=== PATIENT | male | born 1970 | race Caucasian/White ===

== ENCOUNTER 2020-08-25 10:10 | Emergency (ER) | payer BC ==
[2020-08-25] MEDS ORDERED: Bacitracin/Neomycin/Polymyxin B Oint 0.9 GM U/D Packet TOP ONE (10:16)
--- NOTE | 2020-08-25 10:16 | EDM.PDOC ---
ED HPI GENERAL MEDICAL PROBLEM - General Chief Complaint: General Stated Complaint: puncture wound Time Seen by Provider: 08/25/20 10:10 Source of Information: Reports: Patient, Old Records ([facility] chart/EMR) History Limitations: Reports: No Limitations - History of Present Illness INITIAL COMMENTS - FREE TEXT/NARRATIVE: The patient was brought to the emergency room via private automobile by his employee for evaluation of multiple puncture wounds on his right arm from catching it between 2 strands of clean shaquille wires while he was trying to put up a fence at about 9:35 AM this morning. No treatment or medications prior to arrival. He does not know his previous tetanus status. The patient is right- handed. No history of fall, injury, neurological deficits, etc. with stable chronic paresthesias from his chronic neck pain. The patient denies any chest pain/pressure, heart flutter, dizziness, orthostasis, orthopnea, diaphoresis, recent decreased exercise tolerance, or any other anginal-type symptoms. No recent history of abdominal pain, heartburn, nausea, diarrhea, melena, gross hematochezia, or any food intolerance, including fatty foods, etc.. The patient also denies any recent fever, cough, wheezing, dyspnea, etc... He complains of 34/10 throbbing pain at side of the above injury. Onset: Today, Sudden Onset Date: 08/25/20 Onset Time: 09:35 Duration: Constant Location: Denies: Head, Face, Neck, Chest, Abdomen Quality: Reports: Throbbing Severity: Mild Improves with: Reports: None Worsens with: Reports: None Context: Reports: Trauma (As above). Denies: Sick Contact Associated Symptoms: Denies: Confusion, Chest Pain, Cough, Diaphoresis, Fever/Chills, Headaches, Loss of Appetite, Malaise, Nausea/Vomiting, Shortness of Breath, Syncope, Weakness Treatments SUPERVISOR LITHARGE: Reports: Other (see below) (None) Right Wrist Pain Score (Numeric/FACES): 3 - Related Data Allergies Allergy/AdvReac Type Severity Reaction Status Date / Time No Known Allergies Allergy Verified 08/25/20 10:14 Home Meds: Home Meds . [No Known Home Meds] 08/25/20 [History] Past Medical History HEENT History: Reports: Other (See Below) Other HEENT History: Recurrent tonsillitis. Cardiovascular History: Reports: High Cholesterol, Hypertension, Other (See Below) Other Cardiovascular History: No current medical therapy for his borderline hypertension or hyperlipidemia. Musculoskeletal History: Reports: Arthritis, Back Pain, Chronic, Fracture, Neck Pain, Chronic, Osteoarthritis, Other (See Below) Other Musculoskeletal History: Left ankle fracture in 2013 with surgery as below. Endocrine/Metabolic History: Reports: Obesity/BMI 30+ - Past Surgical History HEENT Surgical History: Reports: Tonsillectomy, Other (See Below). Denies: Adenoidectomy Other HEENT Surgeries/Procedures: Tonsillectomy on 08/11/2004. Musculoskeletal Surgical History: Reports: ORIF, Other (See Below) Other Musculoskeletal Surgeries/Procedures:: Left ankle ORIF secondary to fracture in 2013. Social & Family History - Tobacco Use Tobacco Use Status *Q: Current Every Day Tobacco User Tobacco Use Within Last Twelve Months: Snuff/Dip Years of Tobacco use: 36 Packs/Tins Daily: 0.4 Packs/Tins Daily Comment: Patient started using chewing tobacco at age 13 with average use of 1/3 can/day. Used Tobacco, but Quit: No Smoking Cessation Information Provided To Patient: Yes Second Hand Smoke Exposure: No Second Hand Smoke Education Provided: No - Living Situation & Occupation Living situation: Reports: (1999. 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 ED EXAM, GENERAL - Physical Exam Exam: See Below Exam Limited By: No Limitations General Appearance: Alert, WD/WN, No Apparent Distress Head: Atraumatic, Normocephalic Neck: Normal Inspection, Supple, Non-Tender, Full Range of Motion. No: Lymphadenopathy (L), Lymphadenopathy (R), Thyromegaly Respiratory/Chest: No Respiratory Distress, Lungs Clear, Normal Breath Sounds, No Accessory Muscle Use, Chest Non-Tender. No: Pleural Rub, Retractions Cardiovascular: Normal Peripheral Pulses, Regular Rate, Rhythm, No Edema, No Gallop, No JVD, No Murmur, No Rub. No: Gallop/S3, Gallop/S4, Friction Rub Peripheral Pulses: 2+: Radial (L), Radial (R) GI/Abdominal: Normal Bowel Sounds, Soft, Non-Tender, No Organomegaly, No Distention, No Abnormal Bruit, No Mass, Pelvis Stable, Other (Obese). No: Guarding (Fall or other injury neck pain back pain and any fall or hit her head or neck pain nothing like that) (Male) Exam: Deferred Rectal (Males) Exam: Deferred. No: Rectal Fissure Back Exam: Normal Inspection, Full Range of Motion. No: CVA Tenderness (R), Muscle Spasm Extremities: Normal Range of Motion, No Pedal Edema, Normal Capillary Refill, Arm Pain (Mild tenderness with range of motion and by palpation over injury site. Moderate swelling over the distal right anterior tibial region consistent with probable subcutaneous hematoma with multiple small puncture wounds but no direct evidence of foreign body, fracture, dislocation, etc.). No: Increased Warmth, Redness Neurological: Alert, Oriented, CN II-XII Intact, Normal Cognition, Normal Gait, No Motor/Sensory Deficits Psychiatric: Normal Affect, Normal Mood Skin Exam: Wound/Incision (As above). No: Diaphoretic, Ecchymosis Lymphatic: No Adenopathy Course - Vital Signs Last Recorded V/S: Last Vital Signs Temp 36.6 C 08/25/20 10:14 Pulse 77 08/25/20 10:14 Resp 20 08/25/20 10:14 BP 141/95 H 08/25/20 10:30 Pulse Ox 98 08/25/20 10:14 Vital Signs - 24 hr 08/25/20 08/25/20 10:14 10:30 Temperature [ 36.6 C Temporal] Pulse, 77 Peripheral [ Pulse Oximetry] Respiratory 20 Rate Blood Pressure 143/101 H 141/95 H [Left Upper Arm ] O2 Sat by Pulse 98 Oximetry - Orders/Labs/Meds Orders: Active Orders 24 hr Category Date Time Status Vaccines to be Administered [RC] PER UNIT ROUTINE Care 08/25/20 10:22 Active Wrist Comp Min 3V Rt [CR] Stat Exams 08/25/20 10:17 Taken Durable Medical Equipment for Discharge [DME for Oth 08/25/20 10:48 Ordered Discharge] [COMM] Routine Obtain Past Medical Record [OM.PC] Routine Oth 08/25/20 10:16 Active Labs: None Meds: Medications Discontinued Medications Generic Name Dose Route Start Last Admin Trade Name Freq PRN Reason Stop Dose Admin Diphtheria/Tetanus/Acell Pertussis 0.5 ml 08/25/20 10:21 08/25/20 10:34 Diphtheria,Pertussis(Acell),Tetanus Vaccine 0.5 Ml Syringe IM 08/25/20 10:22 0.5 ml .ONCE ONE Administration Neomycin/Polymyxin/Bacitracin 1 each 08/25/20 10:16 08/25/20 10:35 Bacitracin/Neomycin/Polymyxin B Oint 0.9 Gm U/D Packet TOP 08/25/20 10:17 1 each ONETIME ONE Administration - Radiology Interpretation Free Text/Narrative:: X-rays of right wrist/distal forearm, 3 views, shows no evidence of fracture, dislocation, foreign body, etc. Mild osteoarthritic changes noted. Departure - Departure Time of Disposition: 10:50 Disposition: Home, Self-Care 01 Condition: Good Clinical Impression: Puncture wound, Tobacco abuse counseling Hypertension Qualifiers: Hypertension type: essential hypertension Qualified Code(s): I10 - Essential (primary) hypertension Hyperlipidemia Qualifiers: Hyperlipidemia type: unspecified Qualified Code(s): E78.5 - Hyperlipidemia, unspecified Osteoarthritis Qualifiers: Osteoarthritis location: multiple joints Osteoarthritis type: primary Qualified Code(s): M89.49 - Other hypertrophic osteoarthropathy, multiple sites Peripheral neuropathy Qualifiers: Peripheral neuropathy type: polyneuropathy, other Qualified Code(s): G62.89 - Other specified polyneuropathies - Discharge Information *PRESCRIPTION DRUG MONITORING PROGRAM REVIEWED*: Not Applicable *COPY OF PRESCRIPTION DRUG MONITORING REPORT IN PATIENT GUZMAN: Not Applicable Instructions: Health Risks of Smoking, Puncture Wound, [id number], Acute Compartment Syndrome, Smokeless Tobacco Information, Adult Referrals: Dayanna Zarco NP [Primary Care Provider] - Forms: ED Department Discharge Additional Instructions: 1. Follow up with your regular provider in 10-14 days as needed, if symptoms persist. Bring these discharge instructions with you to that visit. 2. Tylenol 650 mg by mouth every 4 hours and/or OTC ibuprofen 2-3 tabs by mouth every 6 hours with food as directed./needed. You may stagger these medications for 48-72 hours only, which essentially means that you are receiving a pain medication about every 2 hours. 3. Antibacterial soap wash/soak with subsequent antibacterial dressing such as Neosporin, etc. as directed 2 times per day until the wound or laceration site completely heals. Keep the area clean and dry with activity restrictions as discussed. Never use hydrogen peroxide for wound care. 4. Arm elevation and ice packs as discussed with continued use of Alfred wrap until swelling resolves 5. Stop all tobacco use MICHELLE as directed/per provided information and consider contacting Quit LIne, etc.. 6. Continue to observe your blood pressures closely through your regular provider 7. Continue weight loss in moderation with continued close observation of your cholesterol status by your regular provider 8. Immediately after this visit verify that your cellular telephone's voicemail has been activated and is empty. Also verify that your home telephone's answering machine is operating properly and has space to receive messages. Note that it is sometimes necessary for us to be able to contact you at a later date to discuss your medical care. 9. Please remember that we are ALWAYS here for you and want to answer any questions you may have. Feel free to call the hospital any time and we call you back MICHELLE. Sepsis Event Note (ED) - Focused Exam Vital Signs: Vital Signs Temp Pulse Resp BP Pulse Ox 08/25/20 10:30 141/95 H 08/25/20 10:14 36.6 C 77 20 143/101 H 98 - Problem List & Annotations (1) Puncture wound SNOMED Code(s): 222493523 Code(s): T14.8XXA - OTHER INJURY OF UNSPECIFIED BODY REGION, INITIAL ENCOUNTER Status: Acute Priority: High Current Visit: Yes Onset Date: 08/25/20 Annotation/Comment:: No recent TDAP per review of NDHIM by the emergency room nurse. TDAP given. Wound care, activity restrictions, etc. were extensively discussed. Patient was also given compartment syndrome precautions. No antibiotic therapy indicated at this time with a clean shaquille wire being installed. Patient is self-employed and does not wish to claim this is a Workmen's Compensation injury. Symptomatic relief as per discharge instructions. Neosporin compression dressing with an Alfred wrap applied by the nurse. (2) Hyperlipidemia SNOMED Code(s): 50881801 Code(s): E78.5 - HYPERLIPIDEMIA, UNSPECIFIED Status: Chronic Priority: Medium Current Visit: Yes Annotation/Comment:: Patient already has dietary information concerning low-fat, low-cholesterol diet. Weight loss in moderation advisable. Continue to observe closely by his regular provider. Qualifiers: Hyperlipidemia type: unspecified Qualified Code(s): E78.5 - Hyperlipidemia, unspecified (3) Hypertension SNOMED Code(s): 74159474 Code(s): I10 - ESSENTIAL (PRIMARY) HYPERTENSION Status: Chronic Priority: Medium Current Visit: Yes Annotation/Comment:: Chronic problem with borderline hypertension with no current medical therapy. Continue to observe closely by his regular provider. Note elevated blood pressures in the emergency room. Qualifiers: Hypertension type: essential hypertension Qualified Code(s): I10 - Essential (primary) hypertension (4) Tobacco abuse counseling SNOMED Code(s): 714154785, 145051985, 052713799 Code(s): Z71.6 - TOBACCO ABUSE COUNSELING Status: Chronic Priority: Medium Current Visit: Yes Annotation/Comment:: Patient counseled on the use of Nicorette gum for chewing tobacco cessation with tobacco cessation information provided. (5) Osteoarthritis SNOMED Code(s): 919419913 Code(s): M19.90 - UNSPECIFIED OSTEOARTHRITIS, UNSPECIFIED SITE Status: Chronic Priority: Medium Current Visit: Yes Annotation/Comment:: Stable by history with no history of fall, other injury, etc. Qualifiers: Osteoarthritis location: multiple joints Osteoarthritis type: primary Qualified Code(s): M89.49 - Other hypertrophic osteoarthropathy, multiple sites (6) Peripheral neuropathy SNOMED Code(s): 082252131 Code(s): G62.9 - POLYNEUROPATHY, UNSPECIFIED Status: Chronic Priority: Medium Current Visit: Yes Annotation/Comment:: Stable in his hands bilater ally secondary to his chronic neck pain, etc. Qualifiers: Peripheral neuropathy type: polyneuropathy, other Qualified Code(s): G62.89 - Other specified polyneuropathies - Problem List Review Problem List Initiated/Reviewed/Updated: Yes - My Orders Last 24 Hours: My Active Orders 08/25/20 10:16 Obtain Past Medical Record [OM.PC] Routine 08/25/20 10:17 Wrist Comp Min 3V Rt [CR] Stat 08/25/20 10:22 Vaccines to be Administered [RC] PER UNIT ROUTINE 08/25/20 10:48 Durable Medical Equipment for Discharge [DME for Discharge] [COMM] Routine - Assessment/Plan Last 24 Hours: My Active Orders 08/25/20 10:16 Obtain Past Medical Record [OM.PC] Routine 08/25/20 10:17 Wrist Comp Min 3V Rt [CR] Stat 08/25/20 10:22 Vaccines to be Administered [RC] PER UNIT ROUTINE 08/25/20 10:48 Durable Medical Equipment for Discharge [DME for Discharge] [COMM] Routine Assessment:: As above Plan: As above. Extensive precautions were given to the patient, who is in agreement with the treatment plan. See Patient Instructions for further treatment and plan.
[2020-08-25] MEDS ORDERED: Diphtheria,Pertussis(Acell),Tetanus Vaccine 0.5 ML Syringe IM ONE (10:21)
== END 2020-08-25 10:50 | disposition home or self-care (01) ==
LOC: LL.ED 10:10
DX: S81.831A Puncture wound without foreign body, right lower leg, initial encounter (principal); M89.49 Other hypertrophic osteoarthropathy, multiple sites; G62.89 Other specified polyneuropathies; I10 Essential (primary) hypertension; E78.5 Hyperlipidemia, unspecified; E66.9 Obesity, unspecified; Z68.30 Body mass index [BMI] 30.0-30.9, adult; W23.0XXA Caught, crushed, jammed, or pinched between moving objects, initial encounter; Z23 Encounter for immunization
CPT/HCPCS: 73110-RT; 90471; 90715; 99283; 99283-25